=== PATIENT | female | born 1935 | race Caucasian/White ===

== ENCOUNTER 2017-02-04 06:51 | Inpatient (IN) | payer MEDICARE, BC ==
[~2017-02-04] VITALS: Ht 167.6 cm; Wt 65.1 kg
--- NOTE | ~2017-02-04 | HP ---
ADMIT: 02/04/2017 RM/LOC: [facility] MR#: [id number] [id number] [facility] [address] [place] [id number] LACEY CUENCA [address] [place] [id number] History and Physical SEX: F AGE: 81 : 1935 DATE OF SERVICE: CHIEF COMPLAINT: Weak and cough with early upper respiratory symptoms. HISTORY OF PRESENT ILLNESS: Lacey is an 81-year-old white female, who has been having a bit of a cough over the last 4 to 5 days. Nonproductive. No hemoptysis. No fever that she is aware of. Had had progressive weakness. She fell on 02/02/2017 at home. Did not hurt herself. Her daughter noted that she has been a little more forgetful, which has been progressing lately. She was brought into the emergency room where she was noted to have issues with her oxygen. Her INR was fine at 2.74. Chest x-ray looks surprisingly good. She did screen positive for early sepsis-type syndrome or sepsis-type symptoms and is admitted at this time for therapy. PAST MEDICAL HISTORY: Includes: 1. GI bleed - PRBC x3 units and FFP x1 unit 07/25, EGD 07/13/2013 with gastritis, colonoscopy 07/13/2013 with severe diverticulosis. 2. Advanced directives - she has stated in the past that her daughter, Didi would make decisions as of 07/26/2014. 3. Redman's palsy in 1995. 4. Benign essential tremor. 5. Lower extremity edema. 6. Nonischemic cardiomyopathy, status post biventricular defibrillator with epicardial leads 07/17 (Guidant model 4046, serial #[id number]), generator exchange on 09/25/2009. 7. Cholecystectomy. 8. Compression fracture of L2 on CT lumbosacral spine 09/26/2012 showing compression fracture, status post L2 kyphoplasty on 09/28/2012. 9. Coumadin therapy with consent signed for 09/2016. 10.Dyspnea on exertion - PFT with FVC 2.11 (66%), FEV1 1.52 (60%), DLCO 112% with mild obstruction and partial reversibility, cardiomegaly was noted on chest x-ray. 11.Generalized abdominal pain. 12.Healthcare maintenance - Pap 05/18, mammo 08/11/2015, exam 08/01/2015, DEXA 07/26/2011, PPD 03/17, colonoscopy 07/13/2013, adenosine Cardiolite 08/2008, echo 04/08/2016, cardiac cath 04/16, CT lumbosacral spine 09/26/2012, EGD 07/13/2013, CT head 01/14/2016, CT chest, abdomen and pelvis 04/23/2016, ultrasound of the kidney 04/23/2016. 13.Hematochezia. 14.High risk medication with Lasix, Diovan, dig, Zocor, and Mobic. 15.Hypertension since 1979. 16.Hypokalemia. 17.Lumbosacral back pain with radiation to the right leg. 18.Spinal stenosis of the lumbar spine - CT of lumbosacral spine 09/23. 19.Bleb in her lung - CT chest, abdomen, and pelvis 01/29/2016, with no adenopathy, scattered blebs and a masslike infiltrate in the right lower lobe measuring 4.8 x 3.2 cm with air bronchograms, likely resolving pneumonia, suggest followup CT in a few months and consider biopsy if persistent, a 7 mm hypodense lesion in the tail of the pancreas that is ADMIT: 02/04/2017 RM/LOC: [facility] MR#: [id number] [address] [id number] LACEY CUENCA [address] [place] [address] History and Physical SEX: F AGE: 81 : 1935 indeterminate, likely a cyst but suggest CT with pancreatic protocol in about 3 months or so, left renal lesion that are likely cysts but too small to characterize, CT chest, abdomen, and pelvis 04/23/2016 with emphysema and masslike nodule/infiltrate in right lung with residual nodular density in the centimeter, kidney show cysts, structure in the tail of the pancreas is stable, suggest continued follow up of right lung and pancreatic area etc. 20.Mixed hyperlipidemia with increased cholesterol, LDL, and triglycerides. 21.Osteopenia - DEXA FN 0.7 and LS -0.1, DEXA 07/26/2011 with FN -0.3 and LS -1. 22.Paroxysmal atrial fibrillation - intermittent on Coumadin, pleural effusion. 23.Primary cardiomyopathy - nonischemic, echo 04/16 with EF 10%, heart cath 04/16, Coreg, biventricular defibrillator with epicardial lead 07/17 (Guidant model 4046, serial number [id number]), echo 06/19 with EF 25%, Cardiolite 08/20 with [id number] distal inferior area with questionable infarct in the anterior apical region, if symptoms, cath, echo 09/25/2010 with EF 30% and mild pulmonary hypertension with RVP 34, echo 04/08/2016, with EF 60% to 65%, segmental wall motion abnormalities, qoro-jr-zudzxhip LVH. 24.Vitamin D deficiency. 25.Weight loss. 26.Thyroid nodule on CT chest, abdomen, and pelvis 04/23/2016, which was stable on the left. 27.Abnormal CT scan of the chest - CT chest 01/26 was abnormal, CT chest, abdomen, pelvis 04/23/2016 with emphysema and masslike nodular infiltrate in the right lung, which was smaller and residual nodular density in the centimeters in size, kidneys show cysts, structure in tail of pancreas is stable, suggest continued follow up of the right lung base as underlying neoplasm could not be excluded, although she would likely not do anything. 28.Abnormal CT scan of the kidney - ultrasound kidney 04/23/2016 with small cyst in the right kidney, 7 mm structure in the left kidney on CT scan and ultrasound, indeterminate suggests followup at some point. MEDICATIONS ON ADMISSION: 1. Albuterol 2 puff q.6 p.r.n. 2. Vitamin C 500 with iron tablet daily. 3. Lipitor 80 mg daily. 4. Carvedilol 25 b.i.d. 5. Vitamin D3, 50,000 weekly. 6. Pepcid 20 b.i.d. 7. TriCor 145 daily. 8. Furosemide 40 mg daily. 9. Mometasone 220 mcg two puffs daily. 10.Nitroglycerin p.r.n. 11.Potassium 10 mEq b.i.d. 12.Mysoline 50 mg b.i.d. ADMIT: 02/04/2017 RM/LOC: [facility] MR#: [id number] [address] [id number] LACEY CUENCA [address] [place] [address] History and Physical SEX: F AGE: 81 : 1935 13.Spiriva inhaled daily. 14.Coumadin 6 mg daily. ALLERGIES: DARIEN INHIBITORS CAUSING A COUGH. SOCIAL HISTORY: She is . Never a smoker. No tobacco use. Does drink rarely. REVIEW OF SYSTEMS: Coughing. Feels a little bit better with fluid and medication. The nebulizers are helping. PHYSICAL EXAMINATION: VITAL SIGNS: Blood pressure 138/70, pulse 84 or 85, respirations 20, and temp 97.64. GENERAL: This is a well-developed, well-nourished white female with frequent coughing initially, but did quiet down while I was examining. SKIN: Warm and dry. HEENT: Normocephalic and atraumatic. Anicteric. LUNGS: With prolonged expiration, but no wheezing. CARDIOVASCULAR: Distant. Regular at this time. ABDOMEN: Soft and nontender. No organomegaly or masses. GENITOURINARY/RECTAL: Deferred. EXTREMITIES: Without cyanosis, clubbing, or edema. MUSCULOSKELETAL: With no arthritis noted. IMPRESSION: 1. Upper respiratory infection with cough - probable early pneumonia. 2. Weakness. 3. Hypertension. PLAN: See chart for orders. Adriana Lee MD/ guy JOB #: [id number] CC: Adriana Lee, Attending Physician Adriana Lee, Family Physician
[~2017-02-04 06:51] MED LIST: ASA CHILDREN'S81 MG PO; ASMANEX1 INH IH; AUGMENTIN 250250 MG PO; CARVEDILOL25 MG PO; COUMADIN6 MG PO; DUONEB DPS3 ML IH; IRON325 M1 PO; LANOXIN DPS0.125 MG PO; LASIX DPS20 MG PO; LIPITOR80 MG PO; MYSOLINE50 MG PO; NITROSTAT0.4 MG SL; PEPCID DPS20 MG PO; POTASSIUM CHLO20 ME2 PO; SPIRIVA18 MCG IH; TRICOR145 MG PO; TYLENOL DPS325 MG PO; VITAMIN C500 M1 PO; VITAMIN D50000 UNIT PO
--- NOTE | 2017-02-06 16:16 | ER ---
ADMIT: 02/04/2017 RM/LOC: 420 [facility] MR#: [id number] [address] [facility] [address] [place] [id number] RASHEL CU[address] [place] [address] Emergency Room Report SEX: F AGE: 81 : 1935 DATE: 02/04/2017 ADDENDUM: An 81-year-old white female coming in with cough, not feeling well, also falling. She also had episodes like this several months ago and ended up with pneumonia. She trips our sepsis screen. White count is 20,000. Rest of her lab is negative. Lactic is 1.2. Urine is negative. Chest x-ray, I did not see any pneumonia. However, her oximetry is 85% which is new for her. She is normally not on oxygen. This would be new. We are going to admit her at this time. I spoke with Dr. Lee. She is a cough, history of fever, hypoxemia - new with upper respiratory-like symptoms. She has had a cough for several days. She is essentially a rule out sepsis at this time. She was started on Zosyn here. CONDITION ON DISCHARGE: Serious, but stable. David Anne MD/ modl JOB #: [id number] CC: Adriana Lee MD, Attending Physician Adriana Lee MD, Family Physician
--- NOTE | 2017-02-09 21:46 | DS ---
ADMIT: 02/04/2017 RM/LOC: 420 [facility] MR#: [id number] [address] [address] LACEY CUENCA [address] [place] [address] Discharge Summary SEX: F AGE: 81 : 1935 ADMISSION DATE: 02/04/2017 DISCHARGE DATE: 02/06/2017 INITIAL DIAGNOSIS: COPD (chronic obstructive pulmonary disease). Lacey has chronic lung issues. She has used inhalers in the past but to no avail. They really have not helped much, and with her tremor, progressive memory loss, she really has not been doing them correctly. Will convert over to DuoNeb. DIAGNOSES: 1. Acute bronchitis. 2. Hypoxemia. 3. Cardiomyopathy with AICD (automatic implantable cardioverter defibrillator). 4. Hypertension. 5. Memory loss. 6. Tremor. 7. Abnormal chest x-ray. Follow up right lung abnormality. 8. Pancreatic tail abnormality-resolved. 9. Weakness. 10.Hypokalemia. CONSULTS: None. PROCEDURES: 1. CT chest 02/05/2017. 2. CT abdomen with pancreatic protocol 02/05/2017. REASON FOR HOSPITALIZATION: Cough, fever and feeling poorly. See dictated H and P. LABORATORY AND X-RAY DATA: Sodium 145, potassium 3.6, chloride 111, CO2 28, BUN 12, creatinine 0.6, calcium 7.9, phosphorus 2.9, total bilirubin 0.7, total protein 7.6, alkaline phosphatase 53, AST 37, ALT 30, GFR was 87. CK 213 with an MB less than 0.5 with a troponin 0.035. INR 2.74 on admit and 2.07 on discharge. White count 20.3 down to 9.8, hemoglobin 10.9 down from 13.2 after hydration. Platelet count 187, lactic acid on admission was 0.9-final value of 1.2. Urine is unremarkable. Chest x-ray on admission with no acute changes. CT scan of the chest did show the right lower lobe opacity was more linear atelectasis than anything. Adjacent pleural effusion was noted but otherwise nothing of significance. Some scattered ground-glass opacities were noted. Likely infectious versus inflammatory. Not enough that I would say it is pneumonia though. CT abdomen was to be done with pancreatic protocol, but I can't really tell on the report if that was the case but regardless the findings were as above. Basically, everything has resolved. COURSE IN HOSPITAL: Lacey was admitted through the emergency room. She was given DuoNebs. Gently hydrated. Placed on Zosyn. Her Lasix was held for a bit. She began feeling better by the following day. The CT scan of her chest and a CT abdomen was ordered with pancreatic protocol, although I need to confirm ADMIT: 02/04/2017 RM/LOC: 420 [facility] MR#: [id number] [address] [place] [address] LACEY CUENCA [address] [place] [address] Discharge Summary SEX: F AGE: 81 : 1935 that this is what was done. The abnormalities in the right lung base, her pancreatic tail, and the kidney were all either stable or had resolved. Her hemoglobin was a little bit better so I had stopped her iron and vitamin C as I really do not know that those were helping much. Regardless, she continued to improve. Potassium did drop to 3.6. On the day of discharge, she was felt to have maximized inpatient benefit. She was subsequently dismissed, and we thought we would get Home Health for RN and PT/OT. MEDICATIONS: 1. Coreg 25 b.i.d. 2. Coumadin 6 mg daily. 3. Potassium 20 mEq b.i.d. 4. Lipitor 80 mg daily. 5. Mysoline 50 b.i.d. 6. Pepcid 20 b.i.d. 7. TriCor 145 mg daily. 8. Asmanex 145 daily. 9. DuoNeb q.i.d. 10.Augmentin 875 b.i.d. for 8 days. 11.Vitamin D 50,000 international units on Friday. 12.Lasix 20 mg daily which will be restarted on discharge. 13.[facility] will coordinate getting her a nebulizer to begin TJN treatments as she has not done these before. We will stop her Spiriva because of this, and I don't think she was taking it anyway. She will have a follow-up appointment with me in about 3 weeks. We will also send a note down to Radiology to make sure this was a pancreatic protocol CT abdomen. She will be going home on the Augmentin and hopefully things will resolve. No further followup CT scans are indicated at this time. Prognosis is fair. Adriana Lee MD/ nella JOB #: [id number] CC: Adriana Lee MD, Attending Physician Adriana Lee MD, Family Physician
== END 2017-02-06 14:05 | disposition home health service (06) | DRG 191 ==
LOC: ER 06:51 → 4PCU 10:20
PROVIDERS: ADMIT Internal Medicine
DX: J44.0 Chronic obstructive pulmonary disease with (acute) lower respiratory infection (principal); I42.9 Cardiomyopathy, unspecified; I48.0 Paroxysmal atrial fibrillation; G25.0 Essential tremor; I10 Essential (primary) hypertension; E78.2 Mixed hyperlipidemia; E55.9 Vitamin D deficiency, unspecified; J20.9 Acute bronchitis, unspecified; R09.02 Hypoxemia; E87.6 Hypokalemia; R41.3 Other amnesia; M48.07 Spinal stenosis, lumbosacral region; M85.80 Other specified disorders of bone density and structure, unspecified site; Z79.01 Long term (current) use of anticoagulants; Z91.81 History of falling; Z95.810 Presence of automatic (implantable) cardiac defibrillator